=== PATIENT | male | born 1970 | race Caucasian/White ===

== ENCOUNTER 2019-08-15 09:43 | Inpatient (IN) | payer MEDICAID, OTHER ==
[~2019-08-15] VITALS: Ht 182.9 cm; Wt 109.1 kg
[2019-08-15] MEDS ORDERED: LISI-660 PO (10:09)
[2019-08-15] MEDS ORDERED: GABA-531 PO (10:09)
[2019-08-15] MEDS ORDERED: CARI350T26 PO (10:09)
[2019-08-15] MEDS ORDERED: METF-960 PO (10:09)
[2019-08-15] MEDS ORDERED: AMLO2.5T4 PO (10:09)
[2019-08-15] MEDS ORDERED: HYDR-4455 PO (10:09)
[2019-08-15 10:11] LABS: GLUCOSE,POINT OF CARE 196 MG/DL (70-110)
[2019-08-15] MEDS ORDERED: HYDROCODONE/ACETAMINOPHEN 10-325 MG TABLET PO ONE (10:15)
[2019-08-15] MEDS ORDERED: LISINOPRIL 10 MG TABLET PO ONE (10:15)
[2019-08-15 10:23] LABS: BASOPHILS % (AUTO) 0.8 % (0.0-2.0); EOSINOPHILS % (AUTO) 0.5 % (1.0-6.0); HEMATOCRIT 42.2 % (41-53); HEMOGLOBIN 14.3 g/dL (13.5-17.5); LYMPHOCYTES # (AUTO) 1.4 K/uL (1.0-4.8); LYMPHOCYTES % (AUTO) 15.4 % (22.0-44.0); MEAN CORPUSCULAR HGB CONC 33.9 G/dL (31.0-37.0); MEAN CORPUSCULAR VOLUME 98 fL (80-100); MONOCYTES # (AUTO) 0.5 K/uL (0.1-1.0); MONOCYTES % (AUTO) 5.6 % (2.0-9.0); NEUTROPHILS # (AUTO) 7.1 K/uL (1.8-7.7); NEUTROPHILS % (AUTO) 77.7 % (40.0-70.0); PLATELET COUNT (AUTO) 238 K/uL (150-450); RED BLOOD CELL COUNT(AUTO) 4.33 MIL/uL (4.50-5.90); RED CELL DISTRIBUTION WIDTH 13.6 % (11.5-14.5)
[2019-08-15 10:33] LABS: ANION GAP 7 mmol/L (8-16); CALCIUM, TOTAL 8.8 mg/dL (8.8-10.5); CARBON DIOXIDE 27 mmol/L (22-29); CHLORIDE 104 mmol/L (98-107); CREATININE 0.88 mg/dL (0.60-1.30); GLOMERULAR FILTR. RATE CALC > 60 mL/min (>60); GLUCOSE,RANDOM 197 mg/dL (70-110); POTASSIUM 4.4 mmol/L (3.5-5.1); SODIUM SERUM 138 mmol/L (136-145); UREA NITROGEN, BLOOD 10 mg/dL (7-18)
[2019-08-15] MEDS ORDERED: HydrALAZINE HCL 20 MG/ML VIAL IVP PRN (11:00)
[2019-08-15] MEDS ORDERED: DEXTROSE 50%-WATER 25 GM/50 ML SYRINGE IVP PRN (11:00)
[2019-08-15] MEDS ORDERED: MAGNESIUM HYDROXIDE SUSPENSION 30 ML UDCUP PO PRN (11:00)
[2019-08-15] MEDS ORDERED: ALBUTEROL SULFATE 2.5 MG/0.5 ML NEB SOLUTION NEB PRN (11:00)
[2019-08-15] MEDS ORDERED: ONDANSETRON HCL 4 MG/2 ML VIAL IVP PRN ×2 (11:00)
[2019-08-15] MEDS ORDERED: BISACODYL 10 MG RECTAL RECTAL SUPPOSITORY PR PRN (11:00)
[2019-08-15] MEDS ORDERED: ACETAMINOPHEN 325 MG TABLET PO PRN (11:00)
[2019-08-15] MEDS ORDERED: DOCUSATE SODIUM 100 MG CAPSULE PO PRN (11:00)
[2019-08-15] MEDS ORDERED: 0.9% SODIUM CHLORIDE 10 ML SYRINGE IVP PRN (11:00)
[2019-08-15] MEDS ORDERED: IPRATROPIUM BROMIDE 0.5 MG/2.5 ML NEB SOLUTION NEB PRN (11:00)
[2019-08-15 11:34] VITALS: BP 172/112
[2019-08-15] MEDS: HydrALAZINE HCL 25 MG TABLET PO PRN (11:46)
[2019-08-15] MEDS: INSULIN LISPRO 100 UNITS/ML SQ PRN ×3 (12:07→21:47)
[2019-08-15 16:01] LABS: GLUCOMETER DEV NAME(LOC) 6N.1; GLUCOSE,POINT OF CARE 188 MG/DL (70-110)
[2019-08-15 16:03] VITALS: BP 165/102
[2019-08-15 17:38] VITALS: BP 155/96
[2019-08-15 17:46] LABS: GLUCOMETER DEV NAME(LOC) 6N.1; GLUCOSE,POINT OF CARE 181 MG/DL (70-110)
[2019-08-15 20:10] VITALS: BP 156/117
[2019-08-15] MEDS: HEPARIN SODIUM,PORCINE 5,000 UNITS/ML VIAL SQ SCH (21:45)
[2019-08-15] MEDS: FAMOTIDINE 20 MG TABLET PO SCH (21:45)
[2019-08-15] MEDS: CARISOPRODOL 350 MG TABLET PO SCH (21:46)
[2019-08-15] MEDS: GABAPENTIN 100 MG CAPSULE PO SCH (21:53)
[2019-08-15 22:06] LABS: GLUCOMETER DEV NAME(LOC) 6N.1; GLUCOSE,POINT OF CARE 158 MG/DL (70-110)
[2019-08-15 23:05] VITALS: BP 145/91
[2019-08-16] VITALS (7 sets, daily range): BP systolic 143–165; BP diastolic 86–100
[2019-08-16] MEDS: ACETAMINOPHEN 325 MG TABLET PO PRN ×4 (05:37→22:28)
[2019-08-16] MEDS: INSULIN LISPRO 100 UNITS/ML SQ PRN ×4 (05:40→20:26)
[2019-08-16 06:27] LABS: GLUCOMETER DEV NAME(LOC) 6N.1; GLUCOSE,POINT OF CARE 178 MG/DL (70-110)
[2019-08-16 06:37] LABS: BASOPHILS % (AUTO) 0.4 % (0.0-2.0); HEMATOCRIT 42.1 % (41-53); HEMOGLOBIN 14.3 g/dL (13.5-17.5); LYMPHOCYTES # (AUTO) 1.5 K/uL (1.0-4.8); LYMPHOCYTES % (AUTO) 20.5 % (22.0-44.0); MEAN CORPUSCULAR HEMOGLOBIN 33.1 pg (26.0-34.0); MEAN CORPUSCULAR HGB CONC 33.9 G/dL (31.0-37.0); MEAN CORPUSCULAR VOLUME 98 fL (80-100); MONOCYTES # (AUTO) 0.6 K/uL (0.1-1.0); NEUTROPHILS # (AUTO) 5.1 K/uL (1.8-7.7); NEUTROPHILS % (AUTO) 69.1 % (40.0-70.0); PLATELET COUNT (AUTO) 236 K/uL (150-450); RED BLOOD CELL COUNT(AUTO) 4.31 MIL/uL (4.50-5.90)
[2019-08-16 06:52] LABS: ANION GAP 12 mmol/L (8-16); CALCIUM, TOTAL 8.8 mg/dL (8.8-10.5); CARBON DIOXIDE 25 mmol/L (22-29); CHLORIDE 104 mmol/L (98-107); CREATININE 0.92 mg/dL (0.60-1.30); GLOMERULAR FILTR. RATE CALC > 60 mL/min (>60); GLUCOSE,RANDOM 174 mg/dL (70-110); POTASSIUM 3.9 mmol/L (3.5-5.1); SODIUM SERUM 141 mmol/L (136-145); UREA NITROGEN, BLOOD 12 mg/dL (7-18)
[2019-08-16] MEDS ORDERED: LISINOPRIL 10 MG TABLET PO SCH (09:00)
[2019-08-16] MEDS: GABAPENTIN 100 MG CAPSULE PO SCH ×3 (09:23→20:16)
[2019-08-16] MEDS: FAMOTIDINE 20 MG TABLET PO SCH ×2 (09:24→20:17)
[2019-08-16] MEDS: AmLODIPine BESYLATE 5 MG TABLET PO SCH (09:25)
[2019-08-16] MEDS: HEPARIN SODIUM,PORCINE 5,000 UNITS/ML VIAL SQ SCH ×2 (09:25→20:17)
[2019-08-16] MEDS: HYDROCODONE/ACETAMINOPHEN 5-325 MG TABLET PO PRN ×3 (12:11→23:35)
[2019-08-16 12:36] LABS: GLUCOMETER DEV NAME(LOC) 6N.1; GLUCOSE,POINT OF CARE 196 MG/DL (70-110)
[2019-08-16 17:31] LABS: GLUCOMETER DEV NAME(LOC) 6N.1; GLUCOSE,POINT OF CARE 176 MG/DL (70-110)
[2019-08-16] MEDS: CARISOPRODOL 350 MG TABLET PO SCH (20:16)
[2019-08-16] MEDS: LISINOPRIL 10 MG TABLET PO SCH (20:17)
[2019-08-16] MEDS: HydrALAZINE HCL 25 MG TABLET PO PRN (22:28)
[2019-08-17 00:21] LABS: GLUCOMETER DEV NAME(LOC) 6N.1; GLUCOSE,POINT OF CARE 166 MG/DL (70-110)
[2019-08-17 06:04] VITALS: BP 143/92
[2019-08-17] MEDS: CloNIDine HCL 0.1 MG TABLET PO PRN ×2 (06:06→16:12)
[2019-08-17] MEDS: INSULIN LISPRO 100 UNITS/ML SQ PRN ×3 (06:06→20:33)
[2019-08-17] MEDS: ACETAMINOPHEN 325 MG TABLET PO PRN ×2 (06:06→13:28)
[2019-08-17 06:31] LABS: GLUCOMETER DEV NAME(LOC) 6N.1; GLUCOSE,POINT OF CARE 172 MG/DL (70-110)
[2019-08-17 07:35] VITALS: BP 135/77
[2019-08-17] MEDS: HEPARIN SODIUM,PORCINE 5,000 UNITS/ML VIAL SQ SCH ×2 (09:00→20:33)
[2019-08-17] MEDS: HYDROCODONE/ACETAMINOPHEN 5-325 MG TABLET PO PRN ×2 (09:11→15:35)
[2019-08-17] MEDS: GABAPENTIN 100 MG CAPSULE PO SCH ×3 (09:11→20:32)
[2019-08-17] MEDS: AmLODIPine BESYLATE 5 MG TABLET PO SCH (09:11)
[2019-08-17] MEDS: FAMOTIDINE 20 MG TABLET PO SCH ×2 (09:11→20:32)
[2019-08-17] MEDS: LISINOPRIL 10 MG TABLET PO SCH ×2 (09:11→20:33)
[2019-08-17 11:52] VITALS: BP 142/89
[2019-08-17 12:31] LABS: GLUCOMETER DEV NAME(LOC) 6N.1; GLUCOSE,POINT OF CARE 154 MG/DL (70-110)
[2019-08-17 15:54] VITALS: BP 147/113
[2019-08-17] MEDS: IBUPROFEN 800 MG TABLET PO PRN (16:12)
[2019-08-17 17:45] LABS: GLUCOMETER DEV NAME(LOC) 6N.1; GLUCOSE,POINT OF CARE 129 MG/DL (70-110)
[2019-08-17 19:51] VITALS: BP 134/98
[2019-08-17] MEDS: HYDROCODONE/ACETAMINOPHEN 10-325 MG TABLET PO PRN (20:32)
[2019-08-17] MEDS: CARISOPRODOL 350 MG TABLET PO SCH (20:32)
[2019-08-18 01:38] VITALS: BP 121/78
[2019-08-18 02:46] LABS: GLUCOMETER DEV NAME(LOC) 6N.1; GLUCOSE,POINT OF CARE 211 MG/DL (70-110)
[2019-08-18 04:48] VITALS: BP 126/75
[2019-08-18] MEDS: INSULIN LISPRO 100 UNITS/ML SQ PRN ×4 (05:58→20:14)
[2019-08-18] MEDS: HYDROCODONE/ACETAMINOPHEN 10-325 MG TABLET PO PRN ×3 (06:01→20:13)
[2019-08-18 06:37] LABS: GLUCOMETER DEV NAME(LOC) 6N.1; GLUCOSE,POINT OF CARE 173 MG/DL (70-110)
[2019-08-18 07:48] VITALS: BP 133/83
[2019-08-18] MEDS: FAMOTIDINE 20 MG TABLET PO SCH ×2 (08:21→20:14)
[2019-08-18] MEDS: AmLODIPine BESYLATE 5 MG TABLET PO SCH (08:21)
[2019-08-18] MEDS: HEPARIN SODIUM,PORCINE 5,000 UNITS/ML VIAL SQ SCH ×2 (08:22→20:14)
[2019-08-18] MEDS: LISINOPRIL 10 MG TABLET PO SCH ×2 (08:22→20:14)
[2019-08-18] MEDS: GABAPENTIN 100 MG CAPSULE PO SCH ×3 (08:22→20:13)
[2019-08-18] MEDS: IBUPROFEN 800 MG TABLET PO PRN (10:11)
[2019-08-18 11:19] VITALS: BP 140/88
[2019-08-18 15:20] VITALS: BP 143/87
[2019-08-18 19:46] LABS: GLUCOMETER DEV NAME(LOC) 6N.1; GLUCOSE,POINT OF CARE 131 MG/DL (70-110)
[2019-08-18 19:46] LABS: GLUCOMETER DEV NAME(LOC) 6N.1; GLUCOSE,POINT OF CARE 166 MG/DL (70-110)
[2019-08-18] MEDS: CloNIDine HCL 0.1 MG TABLET PO PRN (20:13)
[2019-08-18] MEDS: CARISOPRODOL 350 MG TABLET PO SCH (20:13)
[2019-08-18 20:57] VITALS: BP 143/105
[2019-08-18 22:00] LABS: GLUCOMETER DEV NAME(LOC) 6N.1; GLUCOSE,POINT OF CARE 164 MG/DL (70-110)
[2019-08-19] VITALS (7 sets, daily range): BP systolic 111–148; BP diastolic 66–92
[2019-08-19] MEDS: INSULIN LISPRO 100 UNITS/ML SQ PRN ×3 (05:53→20:36)
[2019-08-19 06:16] LABS: GLUCOMETER DEV NAME(LOC) 6N.1; GLUCOSE,POINT OF CARE 160 MG/DL (70-110)
[2019-08-19] MEDS: FAMOTIDINE 20 MG TABLET PO SCH ×2 (08:07→20:35)
[2019-08-19] MEDS: HEPARIN SODIUM,PORCINE 5,000 UNITS/ML VIAL SQ SCH ×2 (08:07→20:36)
[2019-08-19] MEDS: AmLODIPine BESYLATE 5 MG TABLET PO SCH (08:07)
[2019-08-19] MEDS: LISINOPRIL 10 MG TABLET PO SCH ×2 (08:07→20:35)
[2019-08-19] MEDS: GABAPENTIN 100 MG CAPSULE PO SCH ×3 (08:07→20:36)
[2019-08-19] MEDS: HYDROCODONE/ACETAMINOPHEN 10-325 MG TABLET PO PRN ×3 (08:08→20:36)
[2019-08-19] MEDS: IBUPROFEN 800 MG TABLET PO PRN (17:36)
[2019-08-19 18:50] LABS: GLUCOMETER DEV NAME(LOC) 6N.1; GLUCOSE,POINT OF CARE 171 MG/DL (70-110)
[2019-08-19 18:51] LABS: GLUCOMETER DEV NAME(LOC) 6N.1; GLUCOSE,POINT OF CARE 124 MG/DL (70-110)
[2019-08-19] MEDS: CARISOPRODOL 350 MG TABLET PO SCH (20:35)
[2019-08-19 23:06] LABS: GLUCOMETER DEV NAME(LOC) 6N.1; GLUCOSE,POINT OF CARE 162 MG/DL (70-110)
[2019-08-20 05:02] VITALS: BP 125/82
[2019-08-20] MEDS: INSULIN LISPRO 100 UNITS/ML SQ PRN (05:32)
[2019-08-20] MEDS ORDERED: AMLO5TAB66 PO ×3 (05:42→05:53)
[2019-08-20] MEDS ORDERED: CARI350T26 PO ×2 (05:44→05:50)
[2019-08-20] MEDS ORDERED: GABA-529 PO ×3 (05:45→05:54)
[2019-08-20] MEDS ORDERED: LISI10TA7 PO ×3 (05:46→05:55)
[2019-08-20] MEDS ORDERED: CARI350T PO (05:54)
[2019-08-20 06:46] LABS: GLUCOMETER DEV NAME(LOC) 6N.1; GLUCOSE,POINT OF CARE 150 MG/DL (70-110)
[2019-08-20] MEDS: HYDROCODONE/ACETAMINOPHEN 10-325 MG TABLET PO PRN (07:14)
== END 2019-08-20 07:37 | DRG 305 ==
LOC: EMS 09:50 → 6S 10:24
PROVIDERS: ADMIT Internal Medicine; ATTEND Internal Medicine
DX: I16.0 Hypertensive urgency (principal); F11.20 Opioid dependence, uncomplicated; E11.9 Type 2 diabetes mellitus without complications; I10 Essential (primary) hypertension; G89.4 Chronic pain syndrome; Z90.49 Acquired absence of other specified parts of digestive tract
CPT/HCPCS: 93005; J1644